=== PATIENT | male | born 1955 | race Caucasian/White ===

== ENCOUNTER 2016-09-23 16:01 | Inpatient (IN) | payer MEDICARE ==
--- NOTE | 2016-09-23 17:28 | C.PDOC ---
History Of Present Illness 61 y/o male presents to emergency department, brought in by his who offers the history, who reports the patient has been having changes in behavior and hallucinating. Patient has history of schizophrenia and has not been taking medications in a month, citing that he gets paranoid. Also with history of HTN and on blood pressure medications. reports that he has been going to a clinic in [facility], but that he does not want to go back there again. Denies any other acute complaints on arrival. Time Seen by Provider: 09/23/16 17:13 Chief Complaint (Nursing): Psychiatric Evaluation History Per: Family () History/Exam Limitations: no limitations Onset/Duration Of Symptoms: Days Current Symptoms Are (Timing): Still Present Associated Symptoms: denies: Suicidal Thoughts, Suicidal Plan Recent travel outside of the [place]: No Past Medical History Reviewed: Historical Data, Nursing Documentation, Vital Signs Vital Signs: Last Vital Signs Temp 98.1 F 09/23/16 16:17 Pulse 88 09/23/16 16:17 Resp 18 09/23/16 16:17 BP 161/98 H 09/23/16 16:17 Pulse Ox 97 09/23/16 17:29 - Medical History PMH: HTN, Schizophrenia Surgical History: Tonsillectomy Family History: States: Unknown Family Hx - Social History Hx Alcohol Use: No Hx Substance Use: No - Immunization History Hx Tetanus Toxoid Vaccination: No Hx Influenza Vaccination: No Hx Pneumococcal Vaccination: No Review Of Systems Except As Marked, All Systems Reviewed And Found Negative. Cardiovascular: Negative for: Chest Pain Respiratory: Negative for: Cough Gastrointestinal: Negative for: Nausea, Vomiting, Abdominal Pain Skin: Negative for: Rash Psych: Positive for: Psychosis. Negative for: Anxiety, Depression, Suicidal ideation Physical Exam - Physical Exam Appears: Non-toxic, No Acute Distress, Other (calm, cooperative) Skin: Warm, Dry Head: Atraumatic, Normacephalic Eye(s): bilateral: Normal Inspection Chest: Symmetrical Cardiovascular: Rhythm Regular Respiratory: Normal Breath Sounds, No Rales, No Rhonchi, No Wheezing Gastrointestinal/Abdominal: Soft, No Tenderness Back: Normal Inspection Extremity: Normal ROM, Capillary Refill (< 2 sec.) Neurological/Psych: Oriented x3 ED Course And Treatment - Laboratory Results Result Diagrams: 09/23/16 17:38 09/23/16 17:38 Lab Interpretation: No Acute Changes O2 Sat by Pulse Oximetry: 97 (RA) Pulse Ox Interpretation: Normal Progress Note: Labs ordered and reviewed. Reevaluation Time: 20:09 Reassessment Condition: Unchanged (Patient remains calm and cooperative.) - Physician Consult Information Time Consulting Physician Contacted: 20:09 Outcome Of Conversation: Patient evaluated by crisis and accepeted for admission by Dr Cervantes. Disposition - Disposition Disposition: HOSPITALIZED Disposition Time: 20:09 Condition: STABLE - POA Present On Arrival: None - Clinical Impression Clinical Impression: Schizophrenia - Scribe Statement The provider has reviewed the documentation as recorded by the Scribe Cyril Hollis All medical record entries made by the Scribe were at my direction and personally dictated by me. I have reviewed the chart and agree that the record accurately reflects my personal performance of the history, physical exam, medical decision making, and the department course for this patient. I have also personally directed, reviewed, and agree with the discharge instructions and disposition.
[2016-09-23 17:50] LABS: BASO # 0.1 K/uL (0.0-0.2); BASO % 0.8 % (0.0-2.0); EOS # 0.1 K/uL (0.0-0.7); EOS % 0.6 % (0.0-4.0); HEMATOCRIT 42.5 % (35.0-51.0); LYMPH # 2.2 K/uL (1.0-4.3); LYMPH % 19.3 % (20.0-40.0); MEAN CORPUSCULAR HEMOGLOBIN 27.2 pg (27.0-31.0); MEAN CORPUSCULAR HGB CONC 32.7 g/dL (33.0-37.0); MEAN PLATELET VOLUME 8.8 fL (7.2-11.7); MONO # 1.2 K/uL (0.0-0.8); MONO % 10.1 % (0.0-10.0); NRBC % 0.1 % (0.0-2.0); RED CELL DISTRIBUTION WIDTH 14.9 % (11.5-14.5); WHITE BLOOD COUNT 11.5 K/uL (4.8-10.8)
[2016-09-23 17:53] LABS: CHLORIDE 100 mmol/L (98-107)
[2016-09-23 17:54] LABS: POTASSIUM 4.2 mmol/L (3.6-5.2); SODIUM 139 mmol/L (132-148)
[2016-09-23 17:56] LABS: ALB/GLOB RATIO 1.4 (1.0-2.1); ALKALINE PHOSPHATASE 58 U/L (38-126); AST/SGOT 23 U/L (17-59); BILIRUBIN,TOTAL 0.9 mg/dL (0.2-1.3); BLOOD UREA NITROGEN 13 mg/dL (9-20); CARBON DIOXIDE 25 mmol/L (22-30); GFR AFRICAN-AMERICAN > 60; TOTAL PROTEIN 7.9 g/dL (6.3-8.3)
[2016-09-23 17:57] LABS: ALCOHOL SERUM < 10 mg/dl (0-10); ALT/SGPT 26 U/L (21-72); CALCIUM 9.2 mg/dl (8.6-10.4); GLUCOSE,RANDOM 109 mg/dL (75-110)
[2016-09-23 18:27] LABS: RBC URINE 3 /hpf (0-3); URINE BACTERIA RARE (<OCC); URINE BILIRUBIN NEGATIVE (NEGATIVE); URINE BLOOD 1+ (NEGATIVE); URINE COLOR Yellow (YELLOW); URINE GLUCOSE (UA) NORMAL (Normal); URINE KETONE NEGATIVE (NEGATIVE); URINE LEUKOCYTE ESTERASE NEG Leu/uL (Negative); URINE PROTEIN NEGATIVE (NEGATIVE); URINE UROBILINOGEN NORMAL mg/dL (0.2-1.0); WBC URINE < 1 /hpf (0-5)
--- NOTE | 2016-09-24 11:24 | PCM.PSYCH ---
Initial Psychiatric Evaluation - Initial Psychiatric Evaluation Type of Admission: Voluntary Legal Status: Capacity Chief Complaint (in patient's own words): my brought me to the hospital History of Present Illness and Precipitating Events: This is a 61 years old male who presented to ED, with and son for anxiety. As per the patient is becoming increasingly disorganized and internally preoccupied. As per the ER note, yesterday patient was not able to provide information due to disorganized speech and scattered thoughts. As per the , pt has a long history of paranoia and has h/o receiving treatment at [facility] in [place] for 10 years. The pts reported that the pt hears voices with people telling the pt they want to harm him and the TV is sending the pt signals. The pts reported the pt discontinued services with the clinic due to feeling it was not helpful. The pts also reported that the pt also discontinued his medication, Olanzapine 15 mg also a month ago. Today patient was seen and evaluated. Patient remained disorganized and internally preoccupied. He appears suspicious delusional and psychotic. He appeared unkempt and continued to have loose associations. However he denied any suicidal ideation or homicidal ideation. He remained isolated and withdrawn. He denies any drinking or any substance abuse Past medical history HTN Current Medications: Active Medications Generic Name Dose Route Start Last Admin Trade Name Freq PRN Reason Stop Dose Admin Amlodipine Besylate 5 mg 09/24/16 10:00 Norvasc PO DAILY JHOAN Benztropine Mesylate 1 mg 09/24/16 11:30 Cogentin PO BID JHOAN Clonazepam 1 mg 09/24/16 11:30 Klonopin PO BID JHOAN Divalproex Sodium 250 mg 09/24/16 11:[address] PO BID JHOAN Fluphenazine HCl 5 mg 09/24/16 11:30 Prolixin PO BID JHOAN Hydroxyzine HCl 50 mg 09/23/16 21:01 09/23/16 22:04 Atarax PO 50 mg Q6 PRN Administration Anxiety Ibuprofen 600 mg 09/23/16 21:04 Motrin Tab PO Q6 PRN Insomnia Pneumococcal Polyvalent Vaccine 0.5 ml 09/26/16 10:00 Pneumovax 23 Vaccine IM 09/26/16 10:01 .ONCE ONE Trazodone HCl 50 mg 09/23/16 21:03 09/23/16 22:04 Desyrel PO 50 mg HS PRN Administration Insomnia Past Psychiatric History - Past Psychiatric History Previous Treatment History: Inpatient Pertinent Medical Hx (Current Medical&Sleep Prob, Allergies): Allergies Allergy/AdvReac Type Severity Reaction Status Date / Time benztropine AdvReac Verified 09/23/16 18:04 gabapentin AdvReac Verified 09/23/16 18:04 haloperidol AdvReac Verified 09/23/16 18:04 olanzapine AdvReac Verified 09/23/16 18:04 quetiapine AdvReac Verified 09/23/16 18:04 thiothixene AdvReac Verified 09/23/16 18:04 zolpidem AdvReac Verified 09/23/16 18:04 No Known Home Med 09/23/16 Review of Systems - Review of Systems All systems: reviewed and no additional remarkable complaints except - Psychiatric Psychiatric: Auditory Hallucinations, Paranoia, Visual Hallucinations Mental Status Examination - Personal Presentation Personal Presentation: Looks older than stated age - Affect Affect: Broad - Motor Activity Motor Activity: Psychomotor Agitation - Reliability in Providing Information Reliability in Providing Information: Poor, due to alteration in thoughts, Poor , due to altered mood - Speech Speech: Disorganized - Mood Mood: Anxious - Formal Thought Process Formal Thought Process: Hallucinations, Delusions, Paranoia, Loosening of associations - Hallucinations/Delusions Hallucinations: Visual, Auditory Delusions: Persecution - Obsessions/Compulsions Obsessions: No Compulsions: No - Cognitive Functions Orientation: Person, Place, Situation, Time Sensorium: Alert Attention/Concentration: Attentive Abstract Thinking: [place] Estimate of Intelligence: Below average Judgement: Imparied, as evidence by: Poor judgement, Imparied, as evidence by: Lack of insight into illness - Risk Risk: Diminished functioning - Strength & Assets Inventory Strength & Assets Inventory: Family support DSM 5 DX - DSM 5 DSM 5 Diagnosis: Schizoaffective disorder bipolar type - Recommended/Plan of Treatment Treatment Recommendations and Plan of Treatment: Schizoaffective disorder bipolar type CBT Psychoeducation Supportive therapy, group therapy, individual therapy Prolixin 5 mg by mouth twice a day Depakote 500 mg by mouth twice a day Klonopin 1 mg by mouth twice a day Trazodone 50 mg by mouth daily at bedtime - Smoking Cessation Smoking Cessation Initiated: No
[2016-09-24] MEDS ORDERED: Divalproex 250 mg DR Tab PO SCH (11:30)
[2016-09-24] MEDS ORDERED: DiphenhydrAMINE 50 mg/ml Inj ONE (12:26)
[2016-09-24] MEDS: Divalproex 500 mg DR Tab PO SCH (22:41)
[2016-09-25] MEDS ORDERED: DiphenhydrAMINE 50 mg/ml Inj IM PRN (00:19)
[2016-09-25] MEDS: Divalproex 500 mg DR Tab PO SCH ×3 (11:43→18:02)
--- NOTE | 2016-09-25 12:34 | PCM.PYCHPN ---
Psychiatric Progress Note - Psychiatric Progress Note Patient seen today, length of contact: 17 min Patient Chief Complaint: 'I am feeling quintin' Problems Identified/Issues Discussed: Patient seen and evaluated, chart reviewed and discussed with the nurse. Patient remained disorganized and internally preoccupied. Patient remained isolated, confined and withdrawn. He was found standing on his door and smiling inappropriately. Yesterday, after receiving the injection, pt remained calm and redirectable. Today, patient still appears paranoid and delusional and he started refusing medications. He is taking medications and denies any side effects. Supportive therapy and psychoeducation were given. Medication Change: No Medical Record Reviewed: Yes Mental Status Examination - Cognitive Function Orientation: Person, Place, Situation, Time Memory: Intact Attention: Poor Concentration: Poor Association: Loose Fund of Knowledge: Poor - Mood Mood: Anxious - Affect Affect: Broad - Speech Speech: Soft - Formal Thought Process Formal Thought Process: Hallucinations, Delusions, Paranoia, Loosening of associations - Suicidal Ideation Suicidal Ideation: No - Homicidal Ideation Homicidal Ideation: No Goal/Treatment Plan - Goal/Treatment Plan Need for Continued Stay: Discharge may exacerbated symptoms, Severe functional impairment Progress Toward Problem(s) and Goals/Treatment Plan: Schizoaffective disorder bipolar type CBT Psychoeducation Supportive therapy, group therapy, individual therapy Prolixin 5 mg by mouth twice a day Depakote 500 mg by mouth twice a day Klonopin 1 mg by mouth twice a day Trazodone 50 mg by mouth daily at bedtime - Smoking Cessation Smoking Cessation Initiated: No
[2016-09-26] MEDS ORDERED: Pneumococcal 23-Valent Vaccine IM ONE (10:00)
[2016-09-26] MEDS: Divalproex 500 mg DR Tab PO SCH ×2 (11:51→19:52)
--- NOTE | 2016-09-26 16:51 | PCM.PYCHPN ---
Psychiatric Progress Note - Psychiatric Progress Note Patient seen today, length of contact: 15 minutes Patient Chief Complaint: I don't want to speak with you Problems Identified/Issues Discussed: Patient seen. Chart reviewed. Case discussed with the staff. Patient refused to talk. Staff reported that patient was angry yesterday and was kicking other people. Reported better today. Supportive reported that patient refused to take medication. Reported to staff patient was appeared internally preoccupied and appear to respond to internal stimuli. Medical Problems: None reported Diagnostic Results: Reviewed Medication Change: No Medical Record Reviewed: Yes Mental Status Examination - Cognitive Function Orientation: Person, Place, Situation, Time Memory: Intact Attention: WNL Concentration: WNL Association: [facility] Fund of Knowledge: [facility] Decription of patient's judgement and insights: Poor - Mood Mood: Other (Irritable) - Affect Affect: Blunted - Speech Speech: Appropriate - Formal Thought Process Formal Thought Process: Paranoia - Suicidal Ideation Suicidal Ideation: No - Homicidal Ideation Homicidal Ideation: No Goal/Treatment Plan - Goal/Treatment Plan Need for Continued Stay: Remain at risks for inpatient hospitalization, Discharge may exacerbated symptoms, Severe functional impairment Progress Toward Problem(s) and Goals/Treatment Plan: Patient education Supportive therapy Continue treatment as before Estimated Date of D/C: 10/07/16 - Smoking Cessation Smoking Cessation Initiated: No
[2016-09-27] MEDS: Divalproex 500 mg DR Tab PO SCH ×2 (10:14→17:23)
--- NOTE | 2016-09-27 15:26 | PCM.PYCHPN ---
Psychiatric Progress Note - Psychiatric Progress Note Patient seen today, length of contact: 15 minutes Patient Chief Complaint: I'm better. Problems Identified/Issues Discussed: Patient seen. Chart reviewed. Case discussed with the staff. Issues related to illness and treatment were discussed with the patient. Patient reported feeling better. Staff reported partially compliant with treatment with no adverse affects as patient is taking some of the medications and others patient is refusing. Education provided the patient about treatment and encouraged to take all of his medications. Today patient was observed walking on the unit. Less internally preoccupied and appeared social. At the time of evaluation, patient was awake alert oriented 3, had no delusions, no auditory or visual hallucinations, no suicidal ideations or homicidal ideations. Medical Problems: None reported Diagnostic Results: Reviewed DSM 5 Symptoms Update: Improving with treatment Medication Change: No Medical Record Reviewed: Yes Mental Status Examination - Cognitive Function Orientation: Person, Place, Situation, Time Memory: Intact Attention: WNL Concentration: WNL Association: WNL Fund of Knowledge: WNL Decription of patient's judgement and insights: Poor - Mood Mood: Neutral - Affect Affect: Blunted - Speech Speech: Appropriate - Formal Thought Process Formal Thought Process: Other - Suicidal Ideation Suicidal Ideation: No - Homicidal Ideation Homicidal Ideation: No Goal/Treatment Plan - Goal/Treatment Plan Need for Continued Stay: Remain at risks for inpatient hospitalization, Discharge may exacerbated symptoms, Severe functional impairment Progress Toward Problem(s) and Goals/Treatment Plan: Patient education Supportive therapy Continue treatment as before Estimated Date of D/C: 10/07/16 - Smoking Cessation Smoking Cessation Initiated: No
[2016-09-28] MEDS: Divalproex 500 mg DR Tab PO SCH ×2 (10:08→21:27)
--- NOTE | 2016-09-28 13:20 | PCM.PYCHPN ---
Psychiatric Progress Note - Psychiatric Progress Note Patient seen today, length of contact: 15 minutes Patient Chief Complaint: 'I feel okay.' Problems Identified/Issues Discussed: Patient seen and evaluated, chart reviewed and discussed with the nurse. The patient has a depressed mood and says that he needs to reconnect with and talk to his . His thoughts are very disorganized and he pauses frequently during speech. He speaks with a flat affect and soft voice. Medication Change: No Medical Record Reviewed: Yes Mental Status Examination - Cognitive Function Orientation: Person, Place, Situation, Time Memory: Intact Attention: WNL Concentration: WNL Association: WN Fund of Knowledge: WNL - Mood Mood: Neutral - Affect Affect: Blunted - Speech Speech: Soft - Formal Thought Process Formal Thought Process: Other - Suicidal Ideation Suicidal Ideation: No - Homicidal Ideation Homicidal Ideation: No Goal/Treatment Plan - Goal/Treatment Plan Need for Continued Stay: Remain at risks for inpatient hospitalization, Discharge may exacerbated symptoms, Severe functional impairment Progress Toward Problem(s) and Goals/Treatment Plan: Schizoaffective disorder bipolar type CBT Psychoeducation Supportive therapy, group therapy, individual therapy Prolixin 5 mg by mouth twice a day Depakote 500 mg by mouth twice a day Klonopin 1 mg by mouth twice a day Trazodone 50 mg by mouth daily at bedtime Estimated Date of D/C: 10/07/16
[2016-09-29] MEDS: Divalproex 500 mg DR Tab PO SCH ×2 (10:39→17:30)
--- NOTE | 2016-09-30 09:44 | PCM.PYCHPN ---
Psychiatric Progress Note - Psychiatric Progress Note Patient seen today, length of contact: 15 minutes Patient Chief Complaint: 'I feel good.' Problems Identified/Issues Discussed: Patient seen and evaluated, chart reviewed and discussed with the nurse. The patient states that he feels good. He denies feelings of anxiety or depression. He refused to answer questions regarding auditory or visual hallucinations and became very agitated. He stated that he wanted to speak to his and refused to take Haldol. He appears slightly unkempt and smelled of body odor. He displayed unusual behavior in which he would repeatedly go over to leaf size picker the payphone and then put it down and walk back to his room. He still has very disorganized thoughts and frequent pauses in his speech. He laughs and smiles inappropriately at times and frequently gets lost in his thoughts. Medication Change: Yes (start haldol) Medical Record Reviewed: Yes Mental Status Examination - Cognitive Function Orientation: Person, Place, Situation, Time Memory: Intact Attention: Poor Concentration: Poor Association: Loose Fund of Knowledge: WNL - Mood Mood: Neutral - Affect Affect: Blunted - Speech Speech: Soft - Formal Thought Process Formal Thought Process: Delusions, Paranoia, Loosening of associations, Other - Suicidal Ideation Suicidal Ideation: No - Homicidal Ideation Homicidal Ideation: No Goal/Treatment Plan - Goal/Treatment Plan Need for Continued Stay: Remain at risks for inpatient hospitalization, Discharge may exacerbated symptoms, Severe functional impairment Progress Toward Problem(s) and Goals/Treatment Plan: Schizoaffective disorder bipolar type CBT Psychoeducation Supportive therapy, group therapy, individual therapy d/c Prolixin 5 mg by mouth twice a day Start Haldol 5 gm PO BID Depakote 500 mg by mouth twice a day Klonopin 1 mg by mouth twice a day Trazodone 50 mg by mouth daily at bedtime Estimated Date of D/C: 10/07/16 - Smoking Cessation Smoking Cessation Initiated: No
[2016-09-30] MEDS: Divalproex 500 mg DR Tab PO SCH ×2 (10:19→17:33)
--- NOTE | 2016-10-01 11:49 | PCM.PYCHPN ---
Psychiatric Progress Note - Psychiatric Progress Note Patient seen today, length of contact: 15 minutes Patient Chief Complaint: 'I feel disappointed.' Problems Identified/Issues Discussed: Patient seen and evaluated, chart reviewed and discussed with the nurse. The patient states that he feels disappointed but wished not to discuss it because it was a personal issue. He denies any anxiety and says that he is sleeping well. He says that he's eating very little because he doesn't like the food here. He states that there's nothing wrong with his mind and that the medication is 'not a problem'. He appears to still be very disorganized in his thoughts with frequent pauses in his speech. He still laughs inappropriately and stares out into space. His mood appeared to be slightly depressed and he spends a lot of time alone in his room. As per staff, he was interacting with another patient but the other patient was doing most of the talking. Supportive therapy and psychoeducation were given. Medication Change: No Medical Record Reviewed: Yes Mental Status Examination - Cognitive Function Orientation: Person, Place, Situation, Time Memory: Intact Attention: Poor Concentration: Poor Association: Loose Fund of Knowledge: WNL - Mood Mood: Neutral - Affect Affect: Blunted - Speech Speech: Soft - Formal Thought Process Formal Thought Process: Delusions, Paranoia, Loosening of associations, Other - Suicidal Ideation Suicidal Ideation: No - Homicidal Ideation Homicidal Ideation: No Goal/Treatment Plan - Goal/Treatment Plan Need for Continued Stay: Remain at risks for inpatient hospitalization, Discharge may exacerbated symptoms, Severe functional impairment Progress Toward Problem(s) and Goals/Treatment Plan: Schizoaffective disorder bipolar type CBT Psychoeducation Supportive therapy, group therapy, individual therapy d/c Prolixin 5 mg by mouth twice a day Start Haldol 5 gm PO BID Depakote 500 mg by mouth twice a day Klonopin 1 mg by mouth twice a day Trazodone 50 mg by mouth daily at bedtime Estimated Date of D/C: 10/07/16
[2016-10-01] MEDS: Divalproex 500 mg DR Tab PO SCH ×2 (14:24→17:37)
[2016-10-02] MEDS: Divalproex 500 mg DR Tab PO SCH (10:34)
--- NOTE | 2016-10-02 11:45 | PCM.PYCHPN ---
Psychiatric Progress Note - Psychiatric Progress Note Patient seen today, length of contact: 15 minutes Patient Chief Complaint: 'I feel good.' Problems Identified/Issues Discussed: Patient seen and evaluated, chart reviewed and discussed with the nurse. The patient states that he feels good, slept well, and that his appetite is improving. He says that the longer he is away from where he came from ([address] in [place]), the better he feels. He denies feelings of anxiety or depression. However, he says that he doesn't feel secure and that he feels people are listening to him. He denies any medication side effects. The patient appears to be isolative and spends most of his time lying in his room. He doesn't really interact with the other patients or participate in group activities. He is less disorganized in his thoughts and has a fewer pauses in his speech. He appears to be kempt but has been wearing the same clothes multiple days in a row. Supportive therapy and psychoeducation were given. Medication Change: No Medical Record Reviewed: Yes Mental Status Examination - Cognitive Function Orientation: Person, Place, Situation, Time Memory: Intact Attention: Poor Concentration: Poor Association: Loose Fund of Knowledge: WNL - Mood Mood: Neutral - Affect Affect: Blunted - Speech Speech: Soft - Formal Thought Process Formal Thought Process: Delusions, Paranoia, Loosening of associations, Other - Suicidal Ideation Suicidal Ideation: No - Homicidal Ideation Homicidal Ideation: No Goal/Treatment Plan - Goal/Treatment Plan Need for Continued Stay: Remain at risks for inpatient hospitalization, Discharge may exacerbated symptoms, Severe functional impairment Progress Toward Problem(s) and Goals/Treatment Plan: Schizoaffective disorder bipolar type CBT Psychoeducation Supportive therapy, group therapy, individual therapy d/c Prolixin 5 mg by mouth twice a day Start Haldol 5 gm PO BID Depakote 500 mg by mouth twice a day Klonopin 1 mg by mouth twice a day Trazodone 50 mg by mouth daily at bedtime Estimated Date of D/C: 10/07/16
--- NOTE | 2016-10-03 10:04 | PCM.PYCHPN ---
Psychiatric Progress Note - Psychiatric Progress Note Patient seen today, length of contact: 15 minutes Patient Chief Complaint: 'I feel good.' Problems Identified/Issues Discussed: Patient seen and evaluated, chart reviewed and discussed with the nurse. The patient states that he feels good, slept well, and that his appetite is improving. He says that the longer he is away from where he came from ([address] in [place]), the better he feels. He denies feelings of anxiety or depression. However, he says that he doesn't feel secure and that he feels people are listening to him. He denies any medication side effects. The patient appears to be isolative and spends most of his time lying in his room. He doesn't really interact with the other patients or participate in group activities. He is less disorganized in his thoughts and has a fewer pauses in his speech. He appears to be kempt but has been wearing the same clothes multiple days in a row. Supportive therapy and psychoeducation were given. Medication Change: Yes (start seroquel, d/c haldol) Medical Record Reviewed: Yes Mental Status Examination - Cognitive Function Orientation: Person, Place, Situation, Time Memory: Intact Attention: Poor Concentration: Poor Association: Loose Fund of Knowledge: WNL - Mood Mood: Neutral - Affect Affect: Blunted - Speech Speech: Soft - Formal Thought Process Formal Thought Process: Delusions, Paranoia, Loosening of associations, Other - Suicidal Ideation Suicidal Ideation: No - Homicidal Ideation Homicidal Ideation: No Goal/Treatment Plan - Goal/Treatment Plan Need for Continued Stay: Remain at risks for inpatient hospitalization, Discharge may exacerbated symptoms, Severe functional impairment Progress Toward Problem(s) and Goals/Treatment Plan: Schizoaffective disorder bipolar type CBT Psychoeducation Supportive therapy, group therapy, individual therapy d/c Prolixin 5 mg by mouth twice a day Start Haldol 5 gm PO BID Depakote 500 mg by mouth twice a day Klonopin 1 mg by mouth twice a day Trazodone 50 mg by mouth daily at bedtime Estimated Date of D/C: 10/07/16
[2016-10-03] MEDS: Divalproex 500 mg DR Tab PO SCH (22:44)
[2016-10-04 07:40] VITALS: O2SAT 99
[2016-10-04] MEDS: Divalproex 500 mg DR Tab PO SCH ×2 (10:55→18:17)
[2016-10-05] MEDS: Divalproex 500 mg DR Tab PO SCH ×2 (11:51→17:41)
--- NOTE | 2016-10-05 13:03 | PCM.PYCHPN ---
Psychiatric Progress Note - Psychiatric Progress Note Patient seen today, length of contact: 15 minutes Patient Chief Complaint: 'I feel okay.' Problems Identified/Issues Discussed: Patient seen and evaluated, chart reviewed and discussed with the nurse. The patient states that he feels okay and is doing well. He states that he is compliant only with Clonapine and has been sleeping well. He denies any racing thoughts or feelings of anxiety. He says that he spoke with his yesterday and that it was a good visit. The patient continues to be isolative and spends most of his time lying in his room. He doesnt interact with the other patients or participate in group activities. He continues to speak with long pauses and rambles. He is still disorganized in his thoughts and keeps his room slightly disorganized as well with empty food containers. He is relatively kempt but continues to wear the same clothing every day. Supportive therapy and psychoeducation were given. Medication Change: Yes (start seroquel, d/c haldol) Medical Record Reviewed: Yes Mental Status Examination - Cognitive Function Orientation: Person, Place, Situation, Time Memory: Intact Attention: Poor Concentration: Poor Association: Loose Fund of Knowledge: WNL - Mood Mood: Neutral - Affect Affect: Blunted - Speech Speech: Soft - Formal Thought Process Formal Thought Process: Delusions, Paranoia, Loosening of associations, Other - Suicidal Ideation Suicidal Ideation: No - Homicidal Ideation Homicidal Ideation: No Goal/Treatment Plan - Goal/Treatment Plan Need for Continued Stay: Remain at risks for inpatient hospitalization, Discharge may exacerbated symptoms, Severe functional impairment Progress Toward Problem(s) and Goals/Treatment Plan: Schizoaffective disorder bipolar type CBT Psychoeducation Supportive therapy, group therapy, individual therapy Prolixin 5 mg by mouth twice a day D/C Haldol 5 mg by mouth twice a day Seroquel 50 mg by mouth twice a day Depakote 500 mg by mouth twice a day Klonopin 1 mg by mouth twice a day Trazodone 50 mg by mouth daily at bedtime Estimated Date of D/C: 10/07/16 - Smoking Cessation Smoking Cessation Initiated: No
[2016-10-06] MEDS: Divalproex 500 mg DR Tab PO SCH ×2 (10:05→17:26)
[2016-10-06 10:40] VITALS: TEMP 98
--- NOTE | 2016-10-06 12:24 | PCM.PYCHPN ---
Psychiatric Progress Note - Psychiatric Progress Note Patient seen today, length of contact: 15 minutes Patient Chief Complaint: 'I feel fine.' Problems Identified/Issues Discussed: Patient seen and evaluated, chart reviewed and discussed with the nurse. The patient states that he is feeling fine and that he slept well. However, he stated that he was not interested in answering any questions and just wanted to talk to his and son. The patient continues to be isolative and spends most of his time alone in his room. He doesnt interact with the other patients or participate in group activities. He appeared to be very sad and depressed today and spoke with a soft voice and flat affect. He remained disorganized and internally preoccupied and still refusing medications Supportive therapy and psychoeducation were given. Medication Change: No Medical Record Reviewed: Yes Mental Status Examination - Cognitive Function Orientation: Person, Place, Situation, Time Memory: Intact Attention: Poor Concentration: Poor Association: Loose Fund of Knowledge: WNL - Mood Mood: Neutral - Affect Affect: Blunted - Speech Speech: Soft - Formal Thought Process Formal Thought Process: Delusions, Paranoia, Loosening of associations, Other - Suicidal Ideation Suicidal Ideation: No - Homicidal Ideation Homicidal Ideation: No Goal/Treatment Plan - Goal/Treatment Plan Need for Continued Stay: Remain at risks for inpatient hospitalization, Discharge may exacerbated symptoms, Severe functional impairment Progress Toward Problem(s) and Goals/Treatment Plan: Schizoaffective disorder bipolar type CBT Psychoeducation Supportive therapy, group therapy, individual therapy Prolixin 5 mg by mouth twice a day Seroquel 50 mg by mouth twice a day Depakote 500 mg by mouth twice a day Klonopin 1 mg by mouth twice a day Trazodone 50 mg by mouth daily at bedtime Estimated Date of D/C: 10/07/16 - Smoking Cessation Smoking Cessation Initiated: No
[2016-10-07 07:34] VITALS: BP 106/70; PULSE 69; RESP 18
--- NOTE | 2016-10-07 10:22 | PCM.PYCHDC ---
Mental Status Examination - Mental Status Examination Orientation: Person, Place, Situation, Time Memory: Intact Mood: Neutral Affect: Constricted Speech: Soft Attention: WNL Concentration: WNL Association: Loose (Mild) Fund of Knowledge: WNL Formal Thought Process: Delusions (Mild), Loosening of associations (Mild) Description of patient's judgement and insight: partially imapired Psychotic Thoughts and Behaviors: denies any AVH Suicidal Ideation: No Current Homicidal Ideation?: No Discharge Summary - Discharge Note Reason for Hospitalization: This is a 61 years old male who presented to ED, with and son for anxiety. As per the patient is becoming increasingly disorganized and internally preoccupied. As per the ER note, yesterday patient was not able to provide information due to disorganized speech and scattered thoughts. As per the , pt has a long history of paranoia and has h/o receiving treatment at [facility] in [place] for 10 years. The pts reported that the pt hears voices with people telling the pt they want to harm him and the TV is sending the pt signals. The pts reported the pt discontinued services with the clinic due to feeling it was not helpful. The pts also reported that the pt also discontinued his medication, Olanzapine 15 mg also a month ago. Today patient was seen and evaluated. Patient remained disorganized and internally preoccupied. He appears suspicious delusional and psychotic. He appeared unkempt and continued to have loose associations. However he denied any suicidal ideation or homicidal ideation. He remained isolated and withdrawn. He denies any drinking or any substance abuse. Consultations:: List each consultation separately and include: 1. Reason for request. 2. Findings. 3. Follow-up Summary of Hospital Course include:: 1. Description of specific treatment plan utilized for patients during their course of treatmen. 2. Summarize the time- course for resolution of acute symptoms and/or regressed behaviors. 3. Describe issues identified and worked on during hospitalization. 4. Describe medication utilized. 5. Describe medical problems identified and treated. 6. Reassessment of suicide risk Summary of Hospital Course: During the course of his stay, patient (pt) started progressively improving and he no longer remained irritable, agitated and disorganized. His paranoia started getting better however he still has mildl loose associations. His mood was improved and he started attending groups and meetings and started socializing. Patient denied any feelings of hopelessness, helplessness, and worthlessness, denied any problem with the sleep or appetite, denied suicidal ideation or homicidal ideation. Pt denied any auditory or visual hallucinations. Some changes were made in his current medications and patient was discharged on following medications. He tolerated these medications very well and denied any side effects. - Final Diagnosis (DSM 5) Condition upon Discharge: STABLE DSM 5: Schizoaffective disorder bipolar type Disposition: HOME/ ROUTINE Follow-up Treatment Plan: Education: Pt was educated and counseled about the risks and benefits of taking and not taking medications. Pt was educated and counseled about the risks of drinking and abusing drugs. Pt was educated and counseled to go to the ER or call 911 if pt develop suicidal ideation or homicidal ideation, worsening of symptoms or severe side effects of the meds. Prescriptions/Medication Reconciliation: amLODIPine [Norvasc] 5 mg PO DAILY #30 tab Benztropine [Cogentin] 1 mg PO BID #60 tab fluPHENAZine [Prolixin] 5 mg PO BID #60 tab hydrOXYzine HCl [Atarax] 50 mg PO BID PRN #60 tab PRN Reason: Anxiety traZODone [Desyrel] 50 mg PO HS PRN #30 tab PRN Reason: Insomnia - Smoking Cessation Smoking Cessation Medication prescribed: No - Antipsychotic Medications Pt discharged on 2 or more routine antipsychotic medications: No
[2016-10-07] MEDS: Divalproex 500 mg DR Tab PO SCH (10:29)
== END 2016-10-07 11:35 | disposition home or self-care (01) | DRG 885 ==
LOC: C.ER 16:01 → C.5E 20:10
PROVIDERS: ADMIT Psychiatry & Neurology Psychiatry; ATTEND Psychiatry & Neurology Psychiatry
PROC: GZ3ZZZZ Medication Management (ICD-10-PCS; principal; 2016-09-23)
PROC: GZHZZZZ Group Psychotherapy (ICD-10-PCS; 2016-09-23)
PROC: GZ56ZZZ Individual Psychotherapy, Supportive (ICD-10-PCS; 2016-09-23)
DX: F25.0 Schizoaffective disorder, bipolar type (principal); Z91.14 Patient's other noncompliance with medication regimen; I10 Essential (primary) hypertension; Z91.19 Patient's noncompliance with other medical treatment and regimen